=== PATIENT | male | born 1980 | race Caucasian/White ===

== ENCOUNTER 2024-11-23 09:10 | Day surgery (SDC) | payer OTHER ==
[2024-11-23] VITALS (8 sets, daily range): BP systolic 127–151; BP diastolic 66–86; PULSE 87–94; RESP 12–24; TEMP 98.4; O2SAT 87–96
[~2024-11-23] VITALS: Ht 177.8 cm; Wt 181.6 kg
[~2024-11-23 09:10] MED LIST: LOSA50TA64 PO
--- NOTE | 2024-11-23 09:41 | ELECTROCARDIOGRAPH REPORT ---
[facility] Test Date: 2024-11-23 Test Time: 09:39:55 Pat Name: RAIMUNDO NEVILLE Department: [facility] Patient ID: [facility]-[id number] Room: Gender: M [employer] T[employer]: : 1980 Requested By: JEFF KRISHNA Order Number: [id number] Reading MD: Dr. GARIMA Berrios Measurements Intervals [place] Rate: 94 P: 59 MS: 246 QRS: 0 QRSD: 90 T: 24 QT: 344 QTc: 431 Interpretive Statements Sinus rhythm Prolonged MS interval Inferior infarct, old Consider anterior infarct Electronically Signed On 11-23-2024 16:58:[address] GARIMA Berrios Please click the below link to view image of tracing.
[2024-11-23] MEDS ORDERED: fentaNYL/PF 50MCG/1 ML 2ML syringe ONE (12:15)
[2024-11-23] MEDS ORDERED: midazolam 1 mg/ML 2ml injection ONE (12:15)
[2024-11-23] MEDS ORDERED: verapamil 2.5 mg/ml inj IV ONE (12:23)
[2024-11-23] MEDS ORDERED: LIDOcaine 1% (10mg/ml) 2ml vial ONE (12:23)
[2024-11-23] MEDS ORDERED: nitroGLYCERIN 500mcg/5mL D5W 5 ML IV ONE (12:24)
[2024-11-23] MEDS ORDERED: heparin 1,000unit/ml 10ml vial 10 ML ONE ×2 (12:24→13:04)
[2024-11-23] MEDS ORDERED: clopidogrel 300mg tablet ONE (13:19)
[2024-11-23] MEDS ORDERED: CLOP-32 PO (13:56)
[2024-11-23] MEDS ORDERED: ASPI-1397 PO (13:56)
[2024-11-23] MEDS ORDERED: ATOR-2 PO (13:56)
[2024-11-23] MEDS ORDERED: HYDROcodone/acetaminophen 10/325mg tab PO PRN (14:00)
[2024-11-23] MEDS ORDERED: HYDROcodone/acetaminophen 5mg/325mg tablet PO PRN (14:00)
--- NOTE | 2024-11-23 16:00 | CARDIAC CATH REPORT ---
Cardiac Cath Report Providers to CC CC: ASMITA KRISHNA MD Procedure Comments: 1. Left Heart Catheterization 2. Selective Coronary Angiography 3. Percutaneous Coronary Intervention of the Right Coronary Artery x 1 4. Right Radial Artery Access Brief History/Indications: 44yo man with HTN, HLD, obesity being evaluated for knee surgery, found to have severe ischemic defect on stress testing referred for evaluation. Techniques: After informed consent was obtained, the patient was brought to the cardiac catheterization laboratory and prepped and draped in usual sterile fashion for left heart catheterization and other procedures mentioned above. The right wrist was anesthetized with 1% Lidocaine and the right radial artery accessed via the Seldinger technique after which a 6Fr sheath was placed. Through this a TIG was used to engage the left ventricle, the right coronary artery, and a JL3.5 to engage the left coronary artery. See below for interventional procedure details. At the conclusion of the case the sheath was removed and hemostasis obtained with a VascBand. Findings Findings: HEMODYNAMICS: See procedure log CORONARY ARTERIES: Rt Dominant LMCA: Luminal Irregularities LAD: Luminal Irregularities Dx: Luminal Irregularities LCx: Luminal Irregularities OM1: Luminal Irregularities OM21: Luminal Irregularities RCA: 80% tortuous mid RCA stenosis PDA: Luminal Irregularities PL: Luminal Irregularities PERCUTANEOUS CORONARY INTERVENTION of the RCA: An XB RCA guide was used to engage the right coronary artery. The RCA lesion was crossed with a BMW wire. Pre-dilatation was performed with a 2.5x12mm balloon. Repeat angiography revealed adequate pre-treatment of the lesion without e vidence of dissection. Subsequently, a 5.0x18mm [place] LORRIE was deployed across the lesion. Post-stent dilatation was not performed. Repeat angiography revealed adequate stent expansion without evidence of dissection. Results Results: 1. Obstructive CAD involving the mid RCA, up to 80% stenosis 2. PCI of mid-RCA with 5.0x18mm [place] LORRIE 3. RRA Access, closed with VascBand RECOMMENDATIONS: 1. Cont ASA 81mg QD indefinitely 2. Cont plavix 75mg QD x 6 months 3. Recommend uptitration of other max-tolerated GDMT JEFF KRISHNA MD Nov 23, 2024 16:00
== END 2024-11-23 16:14 | disposition home or self-care (01) ==
LOC: SSTAY O 09:10
PROVIDERS: ATTEND Internal Medicine Cardiovascular Disease
DX: R94.39 Abnormal result of other cardiovascular function study (principal); I25.10 Atherosclerotic heart disease of native coronary artery without angina pectoris; R94.31 Abnormal electrocardiogram [ECG] [EKG]; I25.2 Old myocardial infarction; I10 Essential (primary) hypertension; E78.5 Hyperlipidemia, unspecified; E66.9 Obesity, unspecified; Z79.899 Other long term (current) drug therapy; Z68.43 Body mass index [BMI] 50.0-59.9, adult; Z88.0 Allergy status to penicillin; Z82.49 Family history of ischemic heart disease and other diseases of the circulatory system
CPT/HCPCS: 93005; 93458; 99152; 99153; A6258; C1874; C9600; J1644; J2003; J2250; J3010; J3490; J7030; Q0163; Q9967; A6402; C1725; C1751; C1769; C1894